=== PATIENT | male | born 1965 | race Caucasian/White ===

== ENCOUNTER 2019-08-27 20:57 | Emergency (ER) | payer OTHER ==
[~2019-08-27] VITALS: Ht 175.3 cm; Wt 93.2 kg
[~2019-08-27 20:57] MED LIST: CETI10TA24 PO
--- NOTE | 2019-08-27 21:00 | PHYS DOC ---
Past History Past Medical History: No Pertinent History, Arthritis, Sciatica Past Surgical History: Tonsillectomy Alcohol Use: Occasionally Drug Use: None General Adult HPI: HPI: "..I was moving some things on .... I didn't think I hurt any thing.. but today...I ve had this severe Rt. lower back and hip... spasms.. I took some Flexeril and a couple pain tablets...but the spasm and pain has never gone away... I had something like this back in 2014...." . Patient is a 53 year old MALE who presents with above hx and complaints back spasm with pain in Rt.Lumbar and along sciatic nerved. Pt. had previous episode of this type of back pain in September 2014. Patient is retired and follows with [facility]. Patient did take ibuprofen earlier in the day as well as some Flexeril and use some salon topical patches and attempt to get pain relief. No specific history of trauma but was lifting objects on Friday. Patient denies any history of fever or chills. Patient denies any history of recent travel outside [facility]. Patient denies any history of immunosuppression. Patient denies any history of cancer. Patient has had periodic low back pain which used to be treated with [id number] meds. Review of Systems: Review of Systems: Constitutional: Denies fever or chills Eyes: Denies change in visual acuity HENT: Denies nasal congestion or sore throat Respiratory: Denies cough or shortness of breath Cardiovascular: Denies chest pain or edema GI: Denies abdominal pain, nausea, vomiting, bloody stools or diarrhea : Denies dysuria Musculoskeletal: Denies back pain or joint pain Integument: Denies rash Neurologic: Denies headache, focal weakness or sensory changes Endocrine: Denies polyuria or polydipsia Lymphatic: Denies swollen glands Psychiatric: Denies depression or anxiety Heart Score: Risk Factors: Risk Factors: DM, Current or recent (<one month) smoker, HTN, HLP, family history of CAD, obesity. Risk Scores: Score 0 - 3: 2.5% MACE over next 6 weeks - Discharge Home Score 4 - 6: 20.3% MACE over next 6 weeks - Admit for Clinical Observation Score 7 - 10: 72.7% MACE over next 6 weeks - Early Invasive Strategies Family History: Family History: Noncontributory Current Medications: Current Meds: See nursing for home medications Allergies: Allergies: Allergies Coded Allergies Type Severity Reaction Last Updated Verified No Known Drug Allergies 10/03/14 No Physical Exam: PE: Constitutional: Moderate acute distress, non-toxic appearance. [] HENT: Normocephalic, atraumatic, bilateral external ears normal, oropharynx moist, no oral exudates, nose normal. [] Eyes: PERRLA, EOMI, conjunctiva normal, no discharge. [] Neck: Normal range of motion, no tenderness, supple, no stridor. [] Cardiovascular:Heart rate regular rhythm, no murmur [] Lungs & Thorax: Bilateral breath sounds equal apex on auscultation [] Abdomen: Bowel sounds normal, soft, no tenderness, no masses, no pulsatile masses. [] Skin: Warm, dry, no erythema, no rash. [] Back: Right lumbar sacral muscle spasm and tenderness, mild right CVA tenderness on percussion. Pain appears to follow the sciatic root on the right. Extremities: No tenderness, no cyanosis, no clubbing, ROM intact, no edema. [] Neurologic: Alert and oriented X 3, normal motor function, normal sensory function, no focal deficits noted. [] DTRs +2 at patella. Patient is ambulatory with a slight ataxic gait. Psychologic: Affect anxious , judgement normal, mood normal. [] EKG: EKG: [] Radiology/Procedures: Radiology/Procedures: [][address] [address] IMAGING REPORT Signed PATIENT: MEHREEN VALENTINE ACCOUNT: [id number] : 1965 LOCATION: ER AGE: 53 SEX: M EXAM STATUS: REG ER ORD. PHYSICIAN: CARMELO MAGANA MD REASON: pain PROCEDURE: CT LUMBAR SPINE WO CONTRAST Exam: CT the lumbar spine without contrast INDICATION: Pain TECHNIQUE: Sequential axial images through the lumbar spine obtained without IV contrast. Sagittal and coronal reformatted images were reconstructed from the axial data and reviewed. Comparisons: None FINDINGS: Vertebral body heights and alignment are well-maintained. Fracture through the lumbar spine is not identified. Multilevel spondylotic change in cervical spine with degenerative disc disease greatest at L3-L4 and L4-L5. Mild bilateral facet arthropathy is noted in lumbar spine. No suspicious osseous lesions or acute fractures. IMPRESSION: Negative CT L-spine for acute traumatic injury. Exposure: One or more of the following in the visualized dose reduction techniques were utilized for this examination: 1. Automated exposure control 2. Adjustment of the MA and/or KV according to patient size 3. Use of iterative of reconstructive technique Electronically signed by: Yvette Nuno MD (08/27/2019 10:03 PM) [id number] DICTATED AND SIGNED BY: YVETTE NUNO MD DATE: 08/27/192202 CC: ISH HENRIQUEZ DO; CARMELO MAGANA MD ~ Course & Med Decision Making: Course & Med Decision Making Pertinent Labs and Imaging studies reviewed. (See chart for details) Patient use ice packs as needed. Patient to take Tylenol and ibuprofen for pain. For marked pain may take Vicoprofen up to 4 times a day. May use Flexeril 10 mg up to 3 times a day for muscle spasms. Follow-up primary care. Take CT T disc with you on follow-up. Return if any concerns. Would continue the topical patches as needed for pain relief. Impression: 1. Back pain-muscle spasm 2. Sciatica 3. Multilevel DJD of Lumbar spine [] Dragon Disclaimer: Armen Disclaimer: This electronic medical record was generated, in whole or in part, using a voice recognition dictation system. Departure Departure: Disposition: 01 HOME/RESIDENCE PRIOR TO ADM Condition: STABLE Referrals: ISH HENRIQUEZ DO (PCP) Scripts Cyclobenzaprine Hcl (CYCLOBENZAPRINE HCL) 10 Mg Tablet 10 MG PO TID PRN PRN for muscle spasms, #30 TAB Prov: CARMELO MAGANA MD 08/27/19 Hydrocodone/Ibuprofen (HYDROCODONE-IBUPROFEN 7.5-200 ) 1 Each Tablet 1 TAB PO PRN Q6HRS PRN for PAIN, #30 TAB 0 Refills Prov: CARMELO MAGANA MD 08/27/19 Justification of Admission: Justification of Admission: Justification of Admission Dx: N/A Dragon Disclaimer This chart was dictated in whole or in part using Voice Recognition software in a busy, high-work load, and often noisy Emergency Department environment. It may contain unintended and wholly unrecognized errors or omissions. CARMELO MAGANA MD Aug 27, 2019 21:00
[2019-08-27] MEDS ORDERED: CYCL-331 PO (21:41)
[2019-08-27] MEDS ORDERED: HYDR-1179 PO (21:41)
[2019-08-27] MEDS ORDERED: MORPHINE SULFATE 10 MG/ML SYRINGE. SQ ONE (21:45)
[2019-08-27] MEDS ORDERED: LORazepam 1 MG TABLET PO ONE (21:45)
[2019-08-27] MEDS ORDERED: ORPHENADRINE CITRATE 60 MG/2 ML VIAL. IM ONE (21:45)
[2019-08-27] MEDS ORDERED: KETOROLAC 60 MG/2 ML VIAL. IM ONE (21:45)
--- NOTE | 2019-08-27 22:06 | RAD ---
Exam: CT the lumbar spine without contrast INDICATION: Pain TECHNIQUE: Sequential axial images through the lumbar spine obtained without IV contrast. Sagittal and coronal reformatted images were reconstructed from the axial data and reviewed. Comparisons: None FINDINGS: Vertebral body heights and alignment are well-maintained. Fracture through the lumbar spine is not identified. Multilevel spondylotic change in cervical spine with degenerative disc disease greatest at L3-L4 and L4-L5. Mild bilateral facet arthropathy is noted in lumbar spine. No suspicious osseous lesions or acute fractures. IMPRESSION: Negative CT L-spine for acute traumatic injury. Exposure: One or more of the following in the visualized dose reduction techniques were utilized for this examination: 1. Automated exposure control 2. Adjustment of the MA and/or KV according to patient size 3. Use of iterative of reconstructive technique Electronically signed by: Yvette Balderas MD (08/27/2019 10:03 PM) [id number]
[2019-08-27 22:30] LABS: BACTERIA,URINE 0 /HPF (0-FEW); BILIRUBIN,URINE NEG (NEG); CLARITY,URINE CLEAR; COLOR,URINE YELLOW; GLUCOSE,URINE NEG (NEG); NITRITE,URINE NEG (NEG); RBC,URINE 0 /HPF (0-2); SQUAMOUS EPITHELIAL CELL,UR OCC /LPF; WBC,URINE OCC /HPF (0-4)
[2019-08-27 23:15] VITALS: BP 111/70
== END 2019-08-27 23:15 | disposition home or self-care (01) ==
LOC: ER 20:57
DX: M54.41 Lumbago with sciatica, right side (principal); M62.830 Muscle spasm of back; M47.816 Spondylosis without myelopathy or radiculopathy, lumbar region; M19.90 Unspecified osteoarthritis, unspecified site
CPT/HCPCS: 72131; 81001; 96372; 99284; J1885; J2270; J2360